=== PATIENT | male | born 1980 | race Caucasian/White ===

== ENCOUNTER 2022-02-22 16:38 | Emergency (ER) | payer MEDICAID ==
[~2022-02-22] VITALS: Ht 165.1 cm; Wt 75.7 kg
[2022-02-22 16:56] VITALS: BP 130/83
[2022-02-22] MEDS ORDERED: FAMOTIDINE 20 MG TAB PO ONE ×2 (18:05→18:45)
[2022-02-22] MEDS ORDERED: diphenhydrAMINE 50 MG CAP PO ONE (18:05)
[2022-02-22] MEDS ORDERED: predniSONE 20 MG TAB PO ONE (18:05)
[2022-02-22] MEDS ORDERED: DIPH25TA53 PO (18:08)
[2022-02-22] MEDS ORDERED: LORA-1048 PO (18:08)
[2022-02-22] MEDS ORDERED: PRED20TA5 PO (18:08)
--- NOTE | 2022-02-22 18:30 | NUR ---
41/M PRESENTS TO ED WITH C/O GENERALIZED BODY RASH SINCE THIS MORNING, DENIES RECENT NEW FOOD OR BODY PRODUCTS. PATIENT REPORTS HE TAKES DAILY MEDICATIONS FOR PREVIOUS HEAD INJURY AND REPORTS HE BELIEVES THE MEDICATIONS MAY HAVE CAUSED THE RASH, DENIES A RECENT CHANGE IN MEDS. DENIES SOB, SPEAKING IN FULL CLEAR SENTENCES, DENIES PAIN REPORTS ITCHINESS.
--- NOTE | 2022-02-22 18:57 | NUR ---
Patient discharged with v/s stable. Written and verbal after care instructions given ABOUT RASH and explained. PRESCRIPTION FOR BENADRYL, LORATADINE, AND PREDNISONE GIVEN. Patient verbalized understanding. Ambulatory with steady gait. All questions addressed prior to discharge. Advised to follow up with PMD.
== END 2022-02-22 18:51 | disposition home or self-care (01) ==
LOC: MED 16:38
DX: T78.40XA Allergy, unspecified, initial encounter (principal); G43.909 Migraine, unspecified, not intractable, without status migrainosus; X58.XXXA Exposure to other specified factors, initial encounter
CPT/HCPCS: 99284; J7512; Q0163